=== PATIENT | female | born 1995 | race Caucasian/White ===

== ENCOUNTER 2016-08-27 18:05 | Emergency (ER) | payer OTHER ==
--- NOTE | 2016-08-27 18:41 | ED PDOC ---
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 Patient states that the backing of the earring came out successfully however she just wants to get the area checked to make sure that there is no infection developing. Patient states that she had similar issue happen to her L earlobe however she was able to successfully remove the backing of the earring on her own without any help several days ago. Denies any fever, chills, headache , nausea, vomiting, any other symptoms. Tetanus not UTD PMD Gwen Past Medical History - Provider Review Nursing Documentation Reviewed: Yes Family/Social History - Physician Review Nursing Documentation Reviewed: Yes Family/Social History: No Known Family HX Allergies/Home Meds Allergies/Adverse Reactions: Allergies No Known Allergies Allergy (Verified 08/27/16 18:48) Review of Systems - Review of Systems Constitutional: Normal. absent: Fatigue, Weight Change, Fevers Eyes: Normal. absent: Vision Changes, Photophobia ENT: Normal. absent: Hearing Changes, Tinnitus Respiratory: Normal. absent: SOB, Cough Skin: Normal. absent: Rash, Pruritis Physical Exam - Physical Exam Narrative Physical Exam (Text): 08/27/16 18:36 GENERAL APPEARANCE: Patient is awake, alert, oriented x 3, in no acute distress. SKIN: Warm, dry; (-) cyanosis, (-) rash. (-) Decubitus Ulcer EYES: (-) conjunctival pallor, (-) scleral icterus, (-) conjunctival hemorrhage. ENMT: Mucous membranes moist. EARS: (+) tenderness, edema, and ecchymosis to the R earlobe, L earlobe is normal, with (-) tenderness, (-) edema. TMs: (-) erythema. Airway patent: (-) stridor. Pharynx: (-) erythema, (-) exudate. NECK: (-) tenderness, (-) stiffness, (-) meningismus, (-) lymphadenopathy. EXTREMITIES: (-) deformity; (-) cellulitis, (-) lymphangitis; (-) subungual hemorrhage; (-) edema. NEURO AND PSYCH: Mental status as above; (-) focal findings. Vital Signs Temp Pulse Resp BP Pulse Ox 08/27/16 18:31 98.6 F 98 H 18 135/85 99 Medical Decision Making ED Course and Treatment: 08/27/16 18:47 21 yo F presents with evaluation for R earlobe swelling and pain. Plan: -- Tdap IM -- Keflex PO -- Naprosyn PO Based on history, exam and diagnostic results plan will be for patient follow- up. Prescription provided. Patient states she fully agrees with and understands discharge instructions. States that she agrees with the plan and disposition. Verbalized and repeated discharge instructions and plan. I have given the patient opportunity to ask any additional questions. Follow up with primary care physician in 1-2 days without fail. Advised to take medication as prescribed. Return to the emergency room at any time for any new or worsening symptoms. - PA / GRAPHICS SPECIALIST / Resident Statement MD/DO has reviewed & agrees with the documentation as recorded. Disposition/Present on Arrival - Present on Arrival Any Indicators Present on Arrival: No History of DVT/PE: No History of Uncontrolled Diabetes: No Urinary Catheter: No History of Decub. Ulcer: No - Disposition Have Diagnosis and Disposition been Completed?: No Diagnosis: Visit for wound check Disposition: HOME/ ROUTINE Disposition Time: 18:49 Patient Plan: Discharge Patient Problems: Current Active Problems Problem Status Diagnosed Visit for wound check Acute Condition: GOOD Discharge Instructions (ExitCare): Acute Wound Care (ED) Print Language: CROATIAN Additional Instructions: Thank you for letting us take care of you today. You were treated for wound check. The emergency medical care you received today was directed at your acute symptoms. If you were prescribed any medication, please fill it and take as directed. It may take several days for your symptoms to resolve. Return to the Emergency Department if your symptoms worsen, do not improve, or if you have any other problems. Please contact your doctor in 2 days for re-evaluation and follow up. Bring any paperwork you were given at discharge with you along with any medications you are taking to your follow up visit. Our treatment cannot replace ongoing medical care by a primary care provider (PCP) outside of the emergency department. Thank you for allowing the [facility] team to be part of your care today. Prescriptions: Cephalexin [Keflex] 500 mg PO Q6 #28 capsule Naproxen 500 mg PO BID #30 tab
[2016-08-27] MEDS ORDERED: TDAP Vaccine 0.5 mL Syr IM ONE (18:52)
[2016-08-27] MEDS ORDERED: Naproxen 550 mg Tab PO STA (18:52)
[2016-08-27 18:57] VITALS: BMI 35.4
[2016-08-27 19:19] VITALS: BP 120/82; PULSE 86; RESP 20; TEMP 98; O2SAT 100
== END 2016-08-27 19:20 | disposition home or self-care (01) ==
LOC: ED 18:05
DX: Z51.89 Encounter for other specified aftercare (principal)

== ENCOUNTER 2016-10-01 12:25 | Emergency (ER) | payer OTHER ==
[2016-10-01 12:25] VITALS: BMI 35.4
[2016-10-01 12:49] VITALS: RESP 20
[2016-10-01] MEDS ORDERED: Tmp-Smz 800 mg-160 mg DS Tab PO STA (13:06)
--- NOTE | 2016-10-01 13:07 | ED PDOC ---
Arrival/HPI - General Chief Complaint: Abnormal Skin Integrity Time Seen by Provider: 10/01/16 12:56 Historian: Patient - History of Present Illness Narrative History of Present Illness (Text): 10/01/16 13:03 21-year-old female presents today with 3 day history of abscess to the right side. Patient states she's been applying Bactroban cream without improvement in her symptoms. Patient denies fevers or chills. Denies numbness weakness or tingling in the extremity. No medications have been taken for pain at home. No other complaints Past Medical History - Provider Review Nursing Documentation Reviewed: Yes - Travel History Have you recently traveled outside [place] w/in the past 3 mons?: No - Infectious Disease Hx of Infectious Diseases: None - Reproductive Menopause: No - Psychiatric Hx Substance Use: No - Anesthesia Hx Anesthesia: No Hx Anesthesia Reactions: No Hx Malignant Hyperthermia: No Family/Social History - Physician Review Nursing Documentation Reviewed: Yes Family/Social History: Unknown Family HX Smoking Status: Never Smoked Hx Alcohol Use: No Hx Substance Use: No Allergies/Home Meds Allergies/Adverse Reactions: Allergies No Known Allergies Allergy (Verified 10/01/16 12:49) Review of Systems - Review of Systems Constitutional: absent: Fatigue, Fevers Respiratory: absent: SOB, Cough Cardiovascular: absent: Chest Pain, Palpitations Gastrointestinal: absent: Abdominal Pain Musculoskeletal: Arthralgias. absent: Back Pain Skin: Abscess Neurological: absent: Headache, Dizziness Physical Exam Vital Signs Reviewed: Yes Vital Signs Temp Pulse Resp BP Pulse Ox 10/01/16 15:05 98.4 F 74 20 120/56 L 100 10/01/16 12:44 98.3 F 97 H 20 120/88 99 Temperature: Afebrile Blood Pressure: Normal Pulse: Regular Respiratory Rate: Normal Appearance: Positive for: Well-Appearing, Non-Toxic, Comfortable Pain Distress: None Mental Status: Positive for: Alert and Oriented X 3 - Systems Exam Head: Present: Atraumatic Mouth: Present: Moist Mucous Membranes Neck: Present: Normal Range of Motion Respiratory/Chest: Present: Clear to Auscultation Cardiovascular: Present: Regular Rate and Rhythm Upper Extremity: Present: Normal ROM Lower Extremity: Present: Tenderness (Right medial thigh there is a quarter size round fluctuant area of erythema with a small amount of purulent discharge noted. Minimal tenderness. No surrounding erythema.), Swelling, Erythema, Neurovascularly Intact, Capillary Refill < 2 s. No: Deformity Neurological: Present: GCS=15 Skin: Present: Warm, Dry Psychiatric: Present: Alert, Oriented x 3 Medical Decision Making ED Course and Treatment: 10/01/16 13:05 Patient is nontoxic well-appearing in no distress. Vital signs are stable. Motrin, Percocet given for pain Bactrim DS p.o. I&D performed, dressing applied Patient was advised to use warm compresses warm soaks return to the emergency room in 2 days for [packing removal]. return immediately if symptoms worsen persist or if new symptoms develop Impression: Abscess, thigh Motrin one tablet every 6 hours as needed for pain Bactrim DS: One tablet twice daily x7 days Warm compresses and warm soaks frequently Return in 2 days for packing removal and wound check Follow up with the surgeon within the next 2 days. Return immediately if symptoms worsen persist or if new symptoms develop: High fevers, increasing pain, increasing redness, swelling or if any other concerning symptoms develop. - Medication Orders Current Medication Orders: Discontinued Medications Ibuprofen (Motrin Tab) 600 mg PO STAT STA Stop: 10/01/16 13:07 Last Admin: 10/01/16 13:21 Dose: 600 mg Lidocaine HCl (Lidocaine 1% (20ml)) Confirm Administered Dose 20 ml .ROUTE .STK- MED ONE Stop: 10/01/16 14:02 Last Admin: 10/01/16 14:15 Dose: 1 ml Trimethoprim/Sulfamethoxazole (Bactrim Ds Tab) 1 tab PO STAT STA PRN Reason: Protocol Stop: 10/01/16 13:07 Last Admin: 10/01/16 13:21 Dose: 1 tab Procedures - Incision and Drainage Site: right thigh Blade Size: 11 I & D Procedure: sterile drapes applied, sterile dressing applied, gauze wick placed Progress: right thigh; abscess area prepped and draped using sterile technique; 1cc lidocaine injected locally. adequate anesthesia; small incision made over central fluctuance; moderate amount of purulent discharge released; wound explored for loculations; 1/2 in packing placed; dressing applied; pt tolerated procedure well. no complications. Disposition/Present on Arrival - Present on Arrival Any Indicators Present on Arrival: No History of DVT/PE: No History of Uncontrolled Diabetes: No Urinary Catheter: No History of Decub. Ulcer: No History Surgical Site Infection Following: None - Disposition Have Diagnosis and Disposition been Completed?: Yes Diagnosis: Abscess of thigh Disposition: HOME/ ROUTINE Disposition Time: 13:06 Patient Plan: Discharge Condition: GOOD Discharge Instructions (ExitCare): Abscess (ED) Additional Instructions: Motrin one tablet every 6 hours as needed for pain Bactrim DS: One tablet twice daily x7 days Warm compresses and warm soaks frequently Return in 2 days for packing removal and wound check Follow up with the surgeon within the next 2 days. Return immediately if symptoms worsen persist or if new symptoms develop: High fevers, increasing pain, increasing redness, swelling or if any other concerning symptoms develop. Prescriptions: Ibuprofen [Motrin] 600 mg PO Q6H PRN #20 tab PRN Reason: pain/fever reduction Sulfamethoxazole/Trimethoprim [Bactrim DS 800 mg-160 mg] 1 tab PO BID #14 tab Referrals: Anand Méndez MD [Staff Provider] - Follow up with primary Ren Leung MD [Staff Provider] - Follow up with primary Forms: WORK NOTE
[2016-10-01] MEDS ORDERED: Lidocaine 1% Inj (20ml) ONE (14:01)
[2016-10-01 15:06] VITALS: BP 120/56; PULSE 74; TEMP 98.4; O2SAT 100
== END 2016-10-01 15:06 | disposition home or self-care (01) ==
LOC: ED 12:25
DX: L02.415 Cutaneous abscess of right lower limb (principal)

== ENCOUNTER 2016-10-03 09:10 | Emergency (ER) | payer OTHER ==
[2016-10-03 09:11] VITALS: BMI 35.4
[2016-10-03 10:00] VITALS: BP 120/65; PULSE 98; RESP 18; TEMP 98.1; O2SAT 100
--- NOTE | 2016-10-03 10:43 | ED PDOC ---
Arrival/HPI - General Chief Complaint: Wound Check Time Seen by Provider: 10/03/16 09:46 Historian: Patient - History of Present Illness Narrative History of Present Illness (Text): 10/03/16 10:39 Patient presents to the emergency room status post incision and drainage of an abscess to the inner right thigh on October 01, states that the wound looks well, states that she was prescribed an antibiotic, which she is still taking. Denies any pain, fever, chills, discharge, redness, swelling. Has no other complaints. PMD Gwen Past Medical History - Provider Review Nursing Documentation Reviewed: Yes - Infectious Disease Hx of Infectious Diseases: None - Reproductive Menopause: No - Psychiatric Hx Substance Use: No - Anesthesia Hx Anesthesia: No Hx Anesthesia Reactions: No Hx Malignant Hyperthermia: No Family/Social History - Physician Review Nursing Documentation Reviewed: Yes Family/Social History: No Known Family HX Smoking Status: Never Smoked Hx Alcohol Use: No Hx Substance Use: No Allergies/Home Meds Allergies/Adverse Reactions: Allergies No Known Allergies Allergy (Verified 10/01/16 12:49) Review of Systems - Review of Systems Constitutional: Normal. absent: Fatigue, Weight Change, Fevers, Night Sweats Musculoskeletal: Normal. absent: Arthralgias, Back Pain, Neck Pain Skin: Normal, Abscess. absent: Rash, Pruritis Physical Exam - Physical Exam Narrative Physical Exam (Text): 10/03/16 10:40 GENERAL APPEARANCE: Patient is awake, alert, oriented x 3, in no acute distress. Skin: warm and dry, + healing packed wound to the medial aspect of the right thigh with no tenderness, discharge, surrounding edema or erythema. Pulmonary: lungs clear, no rhonchi, no wheezing. Cardiac: regular rate and rhythm, no murmur, no gallop. Abdomen: soft nontender. Extremities: no deformity, full range of motion, no tenderness. Vital Signs Temp Pulse Resp BP Pulse Ox 10/03/16 09:57 98.1 F 98 H 18 120/65 100 Medical Decision Making ED Course and Treatment: 10/03/16 10:41 21 yo F presents to the emergency room for wound check to the right thigh status post incision and drainage 2 days ago. On exam, wound appears to be healing well with no signs of infection. Wound cleaned with normal saline and clean dressing applied by PA. Based on history and exam, plan will be for outpatient follow-up. Patient states she fully agrees with and understands discharge instructions. States that she agrees with the plan and disposition. Verbalized and repeated discharge instructions and plan. I have given the patient opportunity to ask any additional questions. Follow up with primary care physician in 1-2 days without fail. Advised to taking antibiotic as prescribed. Return to the emergency room at any time for any new or worsening symptoms. - PA / BENCH SHEAR OPERATOR / Resident Statement MD/DO has reviewed & agrees with the documentation as recorded. Disposition/Present on Arrival - Present on Arrival Any Indicators Present on Arrival: No History of DVT/PE: No History of Uncontrolled Diabetes: No Urinary Catheter: No History of Decub. Ulcer: No History Surgical Site Infection Following: None - Disposition Have Diagnosis and Disposition been Completed?: Yes Diagnosis: Wound check, abscess, Abscess packing removal Disposition: HOME/ ROUTINE Disposition Time: 10:43 Patient Plan: Discharge Condition: GOOD Discharge Instructions (ExitCare): Acute Wound Care (ED) Print Language: SLOVENIAN Additional Instructions: Thank you for letting us take care of you today. You were treated for wound check and packing removal of abscess. The emergency medical care you received today was directed at your acute symptoms. Continue taking current antibiotic. It may take several days for your symptoms to resolve. Return to the Emergency Department if your symptoms worsen, do not improve, or if you have any other problems. Please contact your doctor in 2 days for re-evaluation and follow up. Bring any paperwork you were given at discharge with you along with any medications you are taking to your follow up visit. Our treatment cannot replace ongoing medical care by a primary care provider (PCP) outside of the emergency department. Thank you for allowing the [facility] team to be part of your care today. Referrals: José Antonio Hidalgo [Primary Care Provider] - Follow up with primary
== END 2016-10-03 11:04 | disposition home or self-care (01) ==
LOC: ED 09:10
DX: Z48.01 Encounter for change or removal of surgical wound dressing (principal)

== ENCOUNTER 2017-01-14 20:26 | Emergency (ER) | payer OTHER ==
[2017-01-14 20:27] VITALS: BMI 35.4
[2017-01-14 21:00] VITALS: BP 115/77; PULSE 88; RESP 20; TEMP 98.4; O2SAT 99
--- NOTE | 2017-01-14 21:45 | ED PDOC ---
Arrival/HPI - General Chief Complaint: Upper Extremity Problem/Injury Time Seen by Provider: 01/14/17 21:35 Historian: Patient - History of Present Illness Narrative History of Present Illness (Text): 01/14/17 21:44 Estelle Chavis is a 21 year old female who presents to the Emergency department complaining of left wrist pain. 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 Patient denies any weakness/numbness/tingling in the extremity, other trauma, or any other complaints. Time/Duration: Other (tonight) Symptom Onset: Gradual Symptom Course: Unchanged Activities at Onset: Light Context: Work Past Medical History - Provider Review Nursing Documentation Reviewed: Yes - Infectious Disease Hx of Infectious Diseases: None - Reproductive Menopause: No - Psychiatric Hx Substance Use: No - Anesthesia Hx Anesthesia: No Hx Anesthesia Reactions: No Hx Malignant Hyperthermia: No Family/Social History - Physician Review Nursing Documentation Reviewed: Yes Family/Social History: Unknown Family HX Smoking Status: Never Smoked Hx Alcohol Use: No Hx Substance Use: No Allergies/Home Meds Allergies/Adverse Reactions: Allergies No Known Allergies Allergy (Verified 10/01/16 12:49) Home Medications: Home Meds Medication Instructions Recorded Confirmed No Known Home Med 01/14/17 01/14/17 Review of Systems - Physician Review All systems were reviewed & negative as marked: Yes - Review of Systems Constitutional: Normal. absent: Fevers Eyes: Normal ENT: Normal Respiratory: Normal. absent: SOB, Cough Cardiovascular: Normal. absent: Chest Pain Gastrointestinal: Normal. absent: Abdominal Pain, Diarrhea, Nausea, Vomiting Genitourinary Female: Normal. absent: Dysuria, Frequency, Hematuria, Urine Output Changes Musculoskeletal: Arthralgias (+left wrist pain). absent: Back Pain, Neck Pain Skin: Normal Neurological: Normal Endocrine: Normal Hemo/Lymphatic: Normal Psychiatric: Normal Physical Exam Vital Signs Reviewed: Yes Vital Signs Temp Pulse Resp BP Pulse Ox 01/14/17 20:59 98.4 F 88 20 115/77 99 Temperature: Afebrile Blood Pressure: Normal Pulse: Regular Respiratory Rate: Normal Appearance: Positive for: Well-Appearing, Non-Toxic, Comfortable Pain Distress: None Mental Status: Positive for: Alert and Oriented X 3 - Systems Exam Head: Present: Atraumatic, Normocephalic Pupils: Present: PERRL Extroacular Muscles: Present: EOMI Conjunctiva: Present: Normal Mouth: Present: Moist Mucous Membranes Neck: Present: Normal Range of Motion Upper Extremity: Present: Normal Inspection, Normal ROM, NORMAL PULSES, Neurovascularly Intact, Capillary Refill < 2s. No: Cyanosis, Edema, Tenderness , Swelling, Erythema, Temperature Abnormalties, Deformity Lower Extremity: Present: Normal Inspection. No: Edema Neurological: Present: GCS=15, CN II-XII Intact, Speech Normal Skin: Present: Warm, Dry, Normal Color. No: Rashes Psychiatric: Present: Alert, Oriented x 3, Normal Insight, Normal Concentration Medical Decision Making ED Course and Treatment: 01/14/17 21:45 Impression: 21 year old female complaining of left wrist after while holding pt tonight. Differential Diagnosis included but are not limited to: sprain vs. fracture Plan: -- XR Left Wrist -- Reassess and disposition Progress Notes: 01/14/17 22:05 Reviewed radiology, XR Left Wrist shows no acute processes/fracture. 01/14/17 22:10 On reevaluation the patient feels better and is in no acute distress. Patient is stable for discharge. Patient was instructed to follow up with physician/ clinic in 1-2 days or return if symptoms persist/worsen or new concerning symptoms arise. Re-evaluation Time: 22:10 Reassessment Condition: Re-examined, Improved - RAD Interpretation Radiology Orders: 01/14/17 21:44 WRIST, LEFT 3 VIEWS [RAD] Stat Bolt Man: ED Physician - Medication Orders Current Medication Orders: Discontinued Medications Ibuprofen (Motrin Tab) 400 mg PO ONCE STA Stop: 01/14/17 23:04 Last Admin: 01/14/17 23:07 Dose: Ibuprofen (Motrin Tab) Confirm Administered Dose 400 mg PO .STK-MED ONE Stop: 01/14/17 23:05 Last Admin: 01/14/17 23:07 Dose: 400 mg - Joibe Statement The provider has reviewed the documentation as recorded by the Javi Carrasco All medical record entries made by the Joibteri were at my direction and personally dictated by me. I have reviewed the chart and agree that the record accurately reflects my personal performance of the history, physical exam, medical decision making, and the department course for this patient. I have also personally directed, reviewed, and agree with the discharge instructions and disposition. Disposition/Present on Arrival - Present on Arrival Any Indicators Present on Arrival: No History of DVT/PE: No History of Uncontrolled Diabetes: No Urinary Catheter: No History of Decub. Ulcer: No History Surgical Site Infection Following: None - Disposition Have Diagnosis and Disposition been Completed?: Yes Diagnosis: Wrist sprain Disposition: HOME/ ROUTINE Disposition Time: 22:11 Condition: GOOD Discharge Instructions (ExitCare): Wrist Injury (ED) Additional Instructions: use advil for pain , wrist splint 4 to 5 days Referrals: José Antonio Hidalgo [Primary Care Provider] - Follow up with primary Mitchell Monique MD [Staff Provider] - Follow up with primary Forms: [employer] (Slovak)
--- NOTE | 2017-01-15 10:36 | RAD ---
PROCEDURE: Left Wrist Radiographs. HISTORY: trauma COMPARISON: None. FINDINGS: BONES: Normal. No fracture. JOINTS: Normal. No dislocation. SOFT TISSUES: Normal. OTHER FINDINGS: None. IMPRESSION: Normal left wrist radiographs.
== END 2017-01-14 23:10 | disposition home or self-care (01) ==
LOC: ED 20:26
DX: S63.502A Unspecified sprain of left wrist, initial encounter (principal); X50.1XXA Overexertion from prolonged static or awkward postures, initial encounter; Y99.0 Civilian activity done for income or pay

== ENCOUNTER 2017-03-17 19:27 | Emergency (ER) | payer OTHER ==
[2017-03-17 19:33] VITALS: BMI 40.7
[2017-03-17 19:37] VITALS: BP 134/92; PULSE 96; RESP 18; TEMP 98.3
--- NOTE | 2017-03-17 19:59 | ED PDOC ---
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 She reports that she does not know if the patient has any significant medical problems. States that she is UTD with tetanus and did received her Hep B vaccines. Otherwise has no other complaints. Denies any lacerations, bleeding, d/c, or any other injuries. Past Medical History - Provider Review Nursing Documentation Reviewed: Yes - Infectious Disease Hx of Infectious Diseases: None - Genitourinary/Gynecological Hx Urinary Tract Infection: Yes (currently on keflex) - Psychiatric Hx Substance Use: No - Anesthesia Hx Anesthesia: No Hx Anesthesia Reactions: No Hx Malignant Hyperthermia: No Family/Social History - Physician Review Nursing Documentation Reviewed: Yes Family/Social History: No Known Family HX Smoking Status: Never Smoked Hx Alcohol Use: No Hx Substance Use: No Allergies/Home Meds Allergies/Adverse Reactions: Allergies No Known Allergies Allergy (Verified 10/01/16 12:49) Home Medications: Home Meds Medication Instructions Recorded Confirmed Cephalexin [Keflex] 1 cap PO TID 03/17/17 03/17/17 Review of Systems - Review of Systems Constitutional: Normal. absent: Fatigue, Weight Change, Fevers Musculoskeletal: Normal. absent: Arthralgias, Back Pain, Neck Pain Skin: Normal, Other (abrasion). absent: Rash, Pruritis, Skin Lesions, Laceration Physical Exam Vital Signs Reviewed: Yes Vital Signs Temp Pulse Resp BP Pulse Ox 03/17/17 19:37 98.3 F 96 H 18 134/92 H 96 Temperature: Afebrile Blood Pressure: Normal Pulse: Regular Respiratory Rate: Normal Appearance: Positive for: Well-Appearing, Non-Toxic, Comfortable Pain Distress: None Mental Status: Positive for: Alert and Oriented X 3 - Systems Exam Upper Extremity: Present: Normal ROM, NORMAL PULSES, Neurovascularly Intact, Capillary Refill < 2s, Norm 2-Pt Discrimination, Other (+2 abrasions to the volar aspect of the R forearm with no lacerations). No: Edema, Tenderness, Swelling, Erythema, Temperature Abnormalties, Deformity Neurological: Present: GCS=15, CN II-XII Intact, Speech Normal, Motor Func Grossly Intact, Normal Sensory Function Skin: Present: Warm, Dry, Normal Color. 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 Patient given tylenol for pain. - Medication Orders Current Medication Orders: Discontinued Medications Acetaminophen (Tylenol 325mg Tab) 975 mg PO STAT STA Stop: 03/17/17 19:56 - PA / HRIS COORDINATOR / Resident Statement MD/ has reviewed & agrees with the documentation as recorded. Disposition/Present on Arrival - Present on Arrival Any Indicators Present on Arrival: No History of DVT/PE: No History of Uncontrolled Diabetes: No Urinary Catheter: No History of Decub. Ulcer: No History Surgical Site Infection Following: None - Disposition Have Diagnosis and Disposition been Completed?: Yes Diagnosis: Abrasion forearm Disposition: HOME/ ROUTINE Disposition Time: 19:56 Patient Plan: Discharge Condition: STABLE Discharge Instructions (ExitCare): Abrasion (ED), Return to Work Instructions ( ED) Print Language: JORDANIAN Additional Instructions: [facility] Employee Regarding your Work Related Injury, you are instructed to do all of the following by next day: 1. Notify [facility] Employee Health Department of the sustained injury and arrange for any follow-up appointments if needed during the next business day. If the office is closed or no answer is received, please leave a detailed voice message. Message should include your full name, department and land development project manager, date of injury, date of ED visit if applicable. Employee Health can be reached at [phone]. 2. If there is time lost, notify [facility] Human Resources Department of the work related injury the next business day at [phone]. All medical record entries made by the Scribe were at my direction and personally dictated by me. I have reviewed the chart and agree that the record accurately reflects my personal performance of the history, physical exam, medical decision making, and the department course for this patient. I have also personally directed, reviewed, and agree with the discharge instructions and disposition. Thank you for letting us take care of you today. You were treated for abrasion to the R forearm. The emergency medical care you received today was directed at your acute symptoms. Take over the counter tylenol for pain. It may take several days for your symptoms to resolve. Return to the Emergency Department if your symptoms worsen, do not improve, or if you have any other problems. Please follow up with [facility] in 2-3 days for re-evaluation and follow up. Bring any paperwork you were given at discharge with you along with any medications you are taking to your follow up visit. Our treatment cannot replace ongoing medical care by a primary care provider (PCP) outside of the emergency department. Thank you for allowing the [facility] team to be part of your care today. Forms: [employer] (Setswana)
[2017-03-17 20:25] VITALS: O2SAT 99
== END 2017-03-17 20:25 | disposition home or self-care (01) ==
LOC: ED 19:27
DX: S50.811A Abrasion of right forearm, initial encounter (principal); W50.4XXA Accidental scratch by another person, initial encounter; Y93.89 Activity, other specified; Y92.238 Other place in hospital as the place of occurrence of the external cause; Y99.0 Civilian activity done for income or pay

== ENCOUNTER 2017-09-09 15:49 | Emergency (ER) | payer OTHER ==
[2017-09-09 15:50] VITALS: BMI 40.7
--- NOTE | 2017-09-09 15:52 | ED PDOC ---
Arrival/HPI - General Historian: Patient <Rubio Keith - Last Filed: 09/09/17 17:42> <Cesar Wilhelm - Last Filed: 09/10/17 13:23> - General Time Seen by Provider: 09/09/17 15:52 - History of Present Illness Narrative History of Present Illness (Text): 09/09/17 15:52 22 y/o female, no significant pmh, nkda, c/o dizziness with room spinning sensation and fatigue x 2 hours. 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 (Rubio Keith) Past Medical History - Provider Review Nursing Documentation Reviewed: Yes - Infectious Disease Hx of Infectious Diseases: None - Genitourinary/Gynecological Hx Urinary Tract Infection: Yes (currently on keflex) - Psychiatric Hx Substance Use: No - Anesthesia Hx Anesthesia: No Hx Anesthesia Reactions: No Hx Malignant Hyperthermia: No <Rubio Keith - Last Filed: 09/09/17 17:42> Family/Social History - Physician Review Nursing Documentation Reviewed: Yes Family/Social History: Unknown Family HX Smoking Status: Never Smoked Hx Alcohol Use: No Hx Substance Use: No <Rubio Keith - Last Filed: 09/09/17 17:42> Allergies/Home Meds <Rubio Keith - Last Filed: 09/09/17 17:42> <Cesar Wilhelm - Last Filed: 09/10/17 13:23> Allergies/Adverse Reactions: Allergies No Known Allergies Allergy (Verified 09/09/17 16:02) Review of Systems - Review of Systems Constitutional: Fatigue. absent: Fevers Eyes: absent: Vision Changes ENT: absent: Hearing Changes Respiratory: absent: SOB, Cough Cardiovascular: absent: Chest Pain Gastrointestinal: absent: Abdominal Pain, Nausea, Vomiting Skin: absent: Rash, Pruritis Neurological: Dizziness. absent: Headache Psychiatric: absent: Anxiety, Depression, Suicidal Ideation <Rubio Keith - Last Filed: 09/09/17 17:42> Physical Exam Vital Signs Reviewed: Yes Temperature: Afebrile Blood Pressure: Hypertensive Pulse: Regular Respiratory Rate: Normal Appearance: Positive for: Well-Appearing, Non-Toxic, Comfortable Pain Distress: None Mental Status: Positive for: Alert and Oriented X 3 - Systems Exam Head: Present: Atraumatic, Normocephalic Pupils: Present: PERRL Extroacular Muscles: Present: EOMI Conjunctiva: Present: Normal Mouth: Present: Moist Mucous Membranes Neck: Present: Normal Range of Motion Respiratory/Chest: Present: Clear to Auscultation, Good Air Exchange. No: Respiratory Distress, Accessory Muscle Use Cardiovascular: Present: Regular Rate and Rhythm, Normal S1, S2. No: Murmurs Abdomen: No: Tenderness, Distention, Peritoneal Signs Back: Present: Normal Inspection Upper Extremity: Present: Normal Inspection. No: Cyanosis, Edema Lower Extremity: Present: Normal Inspection. No: Edema Neurological: Present: GCS=15, CN II-XII Intact, Speech Normal, Motor Func Grossly Intact, Gait Normal, Memory Normal Skin: Present: Warm, Dry, Normal Color. No: Rashes Psychiatric: Present: Alert, Oriented x 3, Normal Insight, Normal Concentration <Rubio Keith - Last Filed: 09/09/17 17:42> Vital Signs Temp Pulse Resp BP Pulse Ox 09/09/17 18:17 90 18 137/85 98 09/09/17 16:08 98.1 F 98 H 18 142/95 H 99 09/09/17 16:00 98.1 F 98 H 18 142/95 H 98 Medical Decision Making - Lab Interpretations I have reviewed the lab results: Yes - EKG Interpretation Interpreted by ED Physician: Yes Type: 12 lead EKG <Rubio Keith - Last Filed: 09/09/17 17:42> <Cesar Wilhelm - Last Filed: 09/10/17 13:23> ED Course and Treatment: 09/09/17 16:20 -labs/ck -UA -IVF/meclizine -ekg -observe and reassess 09/09/17 17:44 -Urine hcg is negative. -EKG: NSR @ 98 BPM, no acute ST elevation or depression, no T wave inversion. -Labs are non-significant. -UA show no UTI except yeast noted, diflucan ordered. -Pt. feels much better. -Discharge home with meclizine, stay hydrated, bed rest, follow up with up with your own pmd and neurologist within 2 days, return to the ER for any new or worsening signs or symptoms. (Rubio Keith) - Lab Interpretations Lab Results: 09/09/17 16:10 09/09/17 16:10 Lab Results 09/09/17 16:43: POC Glucose (mg/dL) 131 H 09/09/17 16:10: WBC 9.2, RBC 4.39, Hgb 13.0, Hct 38.1, MCV 86.8, MCH 29.6, MCHC 34.1, RDW 12.9, Plt Count 324, MPV 9.4, Gran % 56.7, Lymph % (Auto) 36.4 H, [place] % (Auto) 5.2, Eos % (Auto) 1.4 L, Baso % (Auto) 0.3, Gran # 5.20, Lymph # ( Auto) 3.3, [place] # (Auto) 0.5, Eos # (Auto) 0.1, Baso # (Auto) 0.03 09/09/17 16:10: Sodium 140, Potassium 3.8, Chloride 103, Carbon Dioxide 25, Anion Gap 15, BUN 18, Creatinine 0.6 L, Est GFR ( Amer) > 60, Est GFR ( Non-Af Amer) > 60, Random Glucose 124 H, Calcium 9.1, Total Bilirubin 0.7, AST 30, ALT 23, Alkaline Phosphatase 79, Total Creatine Kinase 74, Total Protein 7.4 , Albumin 4.2, Globulin 3.2, Albumin/Globulin Ratio 1.3 09/09/17 16:10: Urine Color Yellow, Urine Appearance Clear, Urine pH 6.0, Ur Specific Leslie >= 1.030, Urine Protein 30 H, Urine Glucose (UA) Negative, Urine Ketones Negative, Urine Blood Moderate H, Urine Nitrate Negative, Urine Bilirubin Negative, Urine Urobilinogen 0.2, Ur Leukocyte Esterase Negative, Urine RBC 15 - 20, Urine WBC 0 - 2, Ur Epithelial Cells 4 - 5, Urine Bacteria Many, Coarse Granular Casts Trace H, Urine Other Uyeast - EKG Interpretation EKG Interpretation (Text): 09/09/17 16:47 -EKG: NSR @ 98 BPM, no acute ST elevation or depression, no T wave inversion. ( Rubio Keith) - Medication Orders Current Medication Orders: Discontinued Medications Fluconazole (Diflucan) 150 mg PO STAT STA PRN Reason: Protocol Stop: 09/09/17 17:43 Last Admin: 09/09/17 18:07 Dose: 150 mg Sodium Chloride (Sodium Chloride 0.9%) 1,000 mls @ 999 mls/hr IV .Q1H1M STA Stop: 09/09/17 17:16 Last Admin: 09/09/17 16:56 Dose: 999 mls/hr eMAR Start Stop Document 09/09/17 16:56 SF (Rec: 09/09/17 16:56 SF [id number]) Intravenous Solution Start Date 09/09/17 Start Time 16:56 End Date 09/09/17 End time 17:57 Total Infusion Time 61 Meclizine HCl (Antivert) 50 mg PO STAT STA Stop: 09/09/17 16:17 Last Admin: 09/09/17 16:57 Dose: 50 mg - PA / RADIOISOTOPE TECHNICIAN / Resident Statement / has reviewed & agrees with the documentation as recorded. <Rubio Keith - Last Filed: 09/09/17 17:42> - PA / RADIOISOTOPE TECHNICIAN / Resident Statement SUNIL has reviewed & agrees with the documentation as recorded. <Cesar Wilhelm - Last Filed: 09/10/17 13:23> Disposition/Present on Arrival - Present on Arrival Any Indicators Present on Arrival: No History of DVT/PE: No History of Uncontrolled Diabetes: No Urinary Catheter: No History of Decub. Ulcer: No History Surgical Site Infection Following: None - Disposition Have Diagnosis and Disposition been Completed?: Yes Disposition Time: 16:20 Patient Plan: Discharge <Rubio Keith - Last Filed: 09/09/17 17:42> <Cesar Wilhelm - Last Filed: 09/10/17 13:23> - Disposition Diagnosis: Fatigue, Vertigo, Yeast UTI Disposition: HOME/ ROUTINE Condition: IMPROVED Additional Instructions: -Discharge home with meclizine, stay hydrated, bed rest, follow up with up with your own pmd and neurologist within 2 days, return to the ER for any new or worsening signs or symptoms. Prescriptions: Meclizine [Antivert] 25 mg PO Q6 #30 tab Referrals: Rodri Reinoso [Staff Provider] - Follow up with primary Sanchez,Gautami, MD [Staff Provider] - Follow up with primary Forms: WORK NOTE
[2017-09-09 16:02] VITALS: RESP 18; TEMP 98.1
[2017-09-09] MEDS ORDERED: Sodium Chloride 0.9% 1,000 ML IV STA (16:16)
[2017-09-09 16:49] LABS: BASO # 0.03 K/mm3 (0.0-2.0); BASO % 0.3 % (0.0-3.0); EOS # 0.1 (0.0-0.7); EOS % 1.4 % (1.5-5.0); GRAN # 5.2 (1.4-6.5); GRAN % 56.7 % (50.0-68.0); LYMPH # 3.3 (1.2-3.4); LYMPH % 36.4 % (22.0-35.0); MEAN CELL VOLUME 86.8 fl (80.0-105.0); MEAN CORPUSCULAR HEMOGLOBIN 29.6 pg (25.0-35.0); MEAN CORPUSCULAR HGB CONC 34.1 g/dl (31.0-37.0); MEAN PLATELET VOLUME 9.4 fl (7.0-11.0); MONO # 0.5 (0.1-0.6); MONO % 5.2 % (1.0-6.0); RBC 4.39 10^6/uL (3.5-6.1); RED CELL DISTRIBUTION WIDTH 12.9 % (11.5-14.5); WHITE BLOOD COUNT 9.2 10^3/ul (4.5-11.0)
[2017-09-09 17:04] LABS: ALB/GLOB RATIO 1.3 (1.1-1.8); ALBUMIN 4.2 g/dL (3.0-4.8); ALT/SGPT 23 U/L (7-56); AST/SGOT 30 U/L (14-36); BLOOD UREA NITROGEN 18 mg/dL (7-21); CALCIUM 9.1 mg/dL (8.4-10.5); GFR AFRICAN-AMERICAN > 60; GFR NON-AFRICAN AMERICAN > 60
[2017-09-09 17:24] LABS: URINE BILIRUBIN NEGATIVE (NEGATIVE); URINE BLOOD MODERATE (NEGATIVE); URINE GLUCOSE (UA) NEGATIVE (NEGATIVE); URINE LEUKOCYTE ESTERASE NEGATIVE Leu/uL (NEGATIVE); URINE PROTEIN 30 mg/dL (<30 mg/dL); URINE UROBILINOGEN 0.2 E.U./dL (<1 E.U./dL)
[2017-09-09 17:26] LABS: URINE APPEARANCE CLEAR (CLEAR); URINE COLOR YELLOW (YELLOW)
[2017-09-09 17:38] LABS: URINE RBC 15 - 20 /hpf (0-2); URINE WBC 0 - 2 /hpf (0-6)
[2017-09-09 17:39] LABS: URINE BACTERIA MANY (NEG); URINE COARSE GRANULAR CAST TRACE /hpf (0-2)
[2017-09-09 18:22] VITALS: BP 137/85; PULSE 90; O2SAT 98
--- NOTE | 2017-09-10 09:53 | CARD ---
APPROVED REPORT EKG Measurement Heart [id number] <Conclusion> Normal sinus rhythm Nonspecific T wave abnormality Mildly prolonged QTc
== END 2017-09-09 18:21 | disposition home or self-care (01) ==
LOC: ED 15:49
DX: R42 Dizziness and giddiness (principal); R53.83 Other fatigue; B37.49 Other urogenital candidiasis
CPT/HCPCS: 80053; 81001; 82550; 82948; 85025; 93005; 96360; 99285; J7040